=== PATIENT | male | born 1955 | race Caucasian/White ===

== ENCOUNTER 2018-11-30 15:13 | Inpatient (IN) | payer MEDICARE, OTHER, MEDICAID ==
[2018-11-30 15:37] LABS: ADD MAN DIFF? NO
[2018-11-30 15:40] LABS: BASOPHILS % 0.4 % (0.0-2.0); EOSINOPHILS # 0.1 10^3/ul (0.0-0.5); EOSINOPHILS % 0.7 % (0.0-7.0); HEMATOCRIT 38.1 % (42.0-52.0); HEMOGLOBIN 12.1 g/dl (14.0-18.0); LYMPHOCYTES # 1.7 10^3/ul (0.8-2.9); LYMPHOCYTES % 25.7 % (15.0-51.0); MEAN CORPUSCULAR HEMOGLOBIN 25.2 pg (29.0-33.0); MEAN CORPUSCULAR HGB CONC 31.8 g/dl (32.0-37.0); MEAN CORPUSCULAR VOLUME 79.4 fl (82.0-101.0); MONOCYTE # 0.4 10^3/ul (0.3-0.9); MONOCYTES % 5.8 % (0.0-11.0); NEUTROPHIL # 4.5 10^3/ul (1.6-7.5); NEUTROPHILS % 66.5 % (39.0-77.0); PLATELET COUNT 242 10^3/UL (140-415); RED CELL DISTRIBUTION WIDTH 15.8 % (11.5-14.5)
[2018-11-30 15:40] LABS: WHITE BLOOD COUNT 6.7 10^3/ul (4.8-10.8)
[2018-11-30 16:00] LABS: HEMOGLOBIN A1C 9.5 % (0-5.9)
[2018-11-30 16:03] LABS: ANION GAP 12 (5-13); BLOOD UREA NITROGEN 20 mg/dl (7-20); CALCIUM 9.7 mg/dl (8.4-10.2); CARBON DIOXIDE 22 mmol/L (21-31); CHLORIDE 106 mmol/L (97-110); CHOL/HDL RATIO 10.8 RATIO; CHOLESTEROL 294 mg/dl (100-200); CREATINE KINASE 69 IU/L (23-200); CREATININE 1.75 mg/dl (0.61-1.24); Estimated GFR 40 mL/min (>60); GLUCOSE 231 mg/dl (70-220); HDL CHOLESTEROL 27 mg/dl (30-78); POTASSIUM 4.2 mmol/L (3.5-5.1); SODIUM 140 mmol/L (135-144)
[2018-11-30 16:06] LABS: INR 0.97; PARTIAL THROMBOPLASTIN TIME 35.1 Sec (23.0-35.0)
[2018-11-30 16:07] LABS: ETHANOL < 10.0 mg/dl (0-0)
[2018-11-30 16:15] LABS: CK INDEX 2.8; CK-MB 1.93 ng/ml (0.0-2.4); TROPONIN-I < 0.012 ng/ml (0.000-0.120)
[2018-11-30] MEDS: ASPIRIN 325 MG TAB PO (16:18)
[2018-11-30 17:30] LABS: TRIGLYCERIDES > 1575 mg/dl (0-149)
[2018-11-30] MEDS ORDERED: LABETALOL HCL 20MG INJ (17:31)
[2018-11-30] MEDS: LABETALOL HCL 20MG INJ IV ×3 (17:43→21:19)
[2018-11-30] MEDS ORDERED: NACL 0.9% 3 ML SYG IV (19:00)
[2018-11-30] MEDS ORDERED: DOCUSATE SODIUM 100 MG CAP PO (19:00)
[2018-11-30] MEDS ORDERED: ONDANSETRON 4 MG INJ IV (19:00)
[2018-11-30] MEDS ORDERED: NITROGLYCERIN (SL) 0.4 MG TAB SL (19:00)
[2018-11-30] MEDS ORDERED: MAGNESIUM HYDROXIDE 30ML CUP PO (19:00)
[2018-11-30] MEDS ORDERED: DEXTROSE 50% 50 ML SYRINGE IV ×2 (19:30)
[2018-11-30] MEDS ORDERED: GLUCAGON 1 MG INJ IM (19:30)
[2018-11-30] MEDS ORDERED: GLUCOSE GEL 15 GRAM TUBE PO ×2 (19:30)
[2018-11-30] MEDS ORDERED: GLUCOSE GEL 15 GRAM TUBE BUCCAL (19:30)
[2018-11-30] MEDS: INSULIN ASPART [NOVOLOG] 3 ML PEN SC (22:20)
[2018-11-30] MEDS: GEMFIBROZIL 600 MG TAB PO (22:48)
[2018-12-01] MEDS: LABETALOL HCL 20MG INJ IV ×2 (01:39→02:14)
[2018-12-01] MEDS: SOD CHLORIDE 0.9% 1,000 ML IV ×3 (03:25→20:14)
[2018-12-01] MEDS: ATORVASTATIN 40 MG TAB PO (03:26)
[2018-12-01] MEDS: HEPARIN 5,000 UNIT/1 ML VIAL SC ×3 (03:39→21:09)
[2018-12-01] MEDS: INSULIN ASPART [NOVOLOG] 3 ML PEN SC ×5 (04:44→21:09)
[2018-12-01] MEDS: ACCU-CHEK XX (04:44)
[2018-12-01 05:39] LABS: ADD MAN DIFF? NO
[2018-12-01 05:43] LABS: BASOPHILS % 0.2 % (0.0-2.0); EOSINOPHILS # 0.1 10^3/ul (0.0-0.5); EOSINOPHILS % 0.8 % (0.0-7.0); HEMATOCRIT 40.6 % (42.0-52.0); HEMOGLOBIN 12.8 g/dl (14.0-18.0); LYMPHOCYTES # 0.9 10^3/ul (0.8-2.9); LYMPHOCYTES % 14.8 % (15.0-51.0); MEAN CORPUSCULAR HEMOGLOBIN 25.3 pg (29.0-33.0); MEAN CORPUSCULAR HGB CONC 31.5 g/dl (32.0-37.0); MEAN CORPUSCULAR VOLUME 80.2 fl (82.0-101.0); MEAN PLATELET VOLUME 11.9 fl (7.4-10.4); MONOCYTE # 0.3 10^3/ul (0.3-0.9); NEUTROPHILS % 78.4 % (39.0-77.0); PLATELET COUNT 257 10^3/UL (140-415); RED BLOOD COUNT 5.06 10^6/ul (4.70-6.10)
[2018-12-01 05:43] LABS: WHITE BLOOD COUNT 6.4 10^3/ul (4.8-10.8)
[2018-12-01 06:04] LABS: ALANINE AMINOTRANSFERASE 12 IU/L (13-69); ALBUMIN 4.3 g/dl (3.3-4.9); ALKALINE PHOSPHATASE 96 IU/L (42-121); ANION GAP 15 (5-13); ASPARTATE AMINO TRANSFERASE 20 IU/L (15-46); BILIRUBIN,INDIRECT 0.4 mg/dl (0-1.1); BILIRUBIN,TOTAL 0.4 mg/dl (0.2-1.3); BLOOD UREA NITROGEN 22 mg/dl (7-20); CALCIUM 9.7 mg/dl (8.4-10.2); CARBON DIOXIDE 20 mmol/L (21-31); CHLORIDE 104 mmol/L (97-110); CREATININE 1.54 mg/dl (0.61-1.24); Estimated GFR 46 mL/min (>60); GLUCOSE 305 mg/dl (70-220); MAGNESIUM 1.7 mg/dl (1.7-2.5); POTASSIUM 3.8 mmol/L (3.5-5.1); SODIUM 139 mmol/L (135-144); TOTAL PROTEIN 8.2 g/dl (6.1-8.1)
[2018-12-01] MEDS: PANTOPRAZOLE (EC) 40 MG TAB PO (06:38)
[2018-12-01] MEDS ORDERED: ASPIRIN 81 MG TAB (07:51)
[2018-12-01] MEDS: GEMFIBROZIL 600 MG TAB PO ×2 (07:55→20:48)
[2018-12-01] MEDS: ASPIRIN (EC) 81 MG TAB PO (08:04)
[2018-12-01] MEDS: MAGNESIUM SULFATE 2 GM/50 ML 50 ML IVPB (10:55)
[2018-12-01] MEDS: INSULIN GLARGINE [LANTus] (100 UNITS/ML) SYG SC (10:58)
[2018-12-01 16:06] LABS: ERYTHROCYTE SEDIMENTATION RATE 12 mm/Hr (0-20)
[2018-12-01] MEDS: ATORVASTATIN 80 MG TAB PO (20:48)
[2018-12-02] MEDS: LABETALOL HCL 20MG INJ IV (04:34)
[2018-12-02 05:42] LABS: ADD MAN DIFF? NO
[2018-12-02 05:49] LABS: BASOPHILS % 0.4 % (0.0-2.0); EOSINOPHILS # 0.1 10^3/ul (0.0-0.5); EOSINOPHILS % 1.9 % (0.0-7.0); HEMATOCRIT 40.3 % (42.0-52.0); HEMOGLOBIN 12.8 g/dl (14.0-18.0); LYMPHOCYTES # 0.9 10^3/ul (0.8-2.9); LYMPHOCYTES % 19.7 % (15.0-51.0); MEAN CORPUSCULAR HEMOGLOBIN 25.4 pg (29.0-33.0); MEAN CORPUSCULAR HGB CONC 31.8 g/dl (32.0-37.0); MEAN PLATELET VOLUME 11.9 fl (7.4-10.4); MONOCYTE # 0.3 10^3/ul (0.3-0.9); MONOCYTES % 6.9 % (0.0-11.0); NEUTROPHIL # 3.2 10^3/ul (1.6-7.5); NEUTROPHILS % 70.2 % (39.0-77.0); PLATELET COUNT 242 10^3/UL (140-415); RED BLOOD COUNT 5.04 10^6/ul (4.70-6.10); RED CELL DISTRIBUTION WIDTH 16.1 % (11.5-14.5)
[2018-12-02 05:49] LABS: WHITE BLOOD COUNT 4.6 10^3/ul (4.8-10.8)
[2018-12-02 06:15] LABS: ALBUMIN 3.7 g/dl (3.3-4.9); ANION GAP 10 (5-13); BLOOD UREA NITROGEN 18 mg/dl (7-20); CALCIUM 9.5 mg/dl (8.4-10.2); CARBON DIOXIDE 20 mmol/L (21-31); CHLORIDE 109 mmol/L (97-110); CREATININE 1.57 mg/dl (0.61-1.24); GLUCOSE 230 mg/dl (70-220); MAGNESIUM 2.2 mg/dl (1.7-2.5); PHOSPHORUS 4.9 mg/dl (2.5-4.9); POTASSIUM 4.1 mmol/L (3.5-5.1); SODIUM 139 mmol/L (135-144)
[2018-12-02] MEDS: PANTOPRAZOLE (EC) 40 MG TAB PO (06:59)
[2018-12-02] MEDS: INSULIN ASPART [NOVOLOG] 3 ML PEN SC ×4 (07:40→21:32)
[2018-12-02] MEDS: INSULIN GLARGINE [LANTus] (100 UNITS/ML) SYG SC ×2 (07:40→12:06)
[2018-12-02] MEDS: GEMFIBROZIL 600 MG TAB PO ×2 (08:06→21:14)
[2018-12-02] MEDS: ASPIRIN (EC) 81 MG TAB PO (08:06)
[2018-12-02] MEDS: HEPARIN 5,000 UNIT/1 ML VIAL SC ×2 (08:12→21:33)
[2018-12-02] MEDS: SOD CHLORIDE 0.9% 1,000 ML IV (10:26)
[2018-12-02] MEDS: LINAGLIPTIN 5 MG TABLET PO (11:52)
[2018-12-02 14:56] LABS: RAPID PLASMA REAGIN NONREACTIVE (NR)
[2018-12-02] MEDS: ATORVASTATIN 80 MG TAB PO (21:14)
[2018-12-03] MEDS: SOD CHLORIDE 0.9% 1,000 ML IV (00:32)
[2018-12-03 05:41] LABS: ADD MAN DIFF? NO
[2018-12-03 05:43] LABS: ADD UMIC YES; UR ASCORBIC ACID NEGATIVE (NEGATIVE); UR BILIRUBIN (Dip) NEGATIVE (NEGATIVE); UR BLOOD (Dip) 1+ mg/dL (NEGATIVE); UR CLARITY CLEAR (CLEAR); UR COLOR YELLOW (YELLOW); UR GLUCOSE (Dip) 2+ mg/dL (NEGATIVE); UR KETONES (Dip) NEGATIVE (NEGATIVE); UR LEUKOCYTE ESTERASE (Dip) NEGATIVE Leu/ul (NEGATIVE); UR NITRITE (Dip) NEGATIVE (NEGATIVE); UR RBC 0 /HPF (0-5); UR SPECIFIC GRAVITY (Dip) 1.011 (1.003-1.030); UR TOTAL PROTEIN (Dip) 2+ mg/dl (NEGATIVE); UR UROBILINOGEN (Dip) NEGATIVE (NEGATIVE); UR WBC 0 /HPF (0-5)
[2018-12-03 05:46] LABS: WHITE BLOOD COUNT 5.1 10^3/ul (4.8-10.8)
[2018-12-03 05:46] LABS: BASOPHILS % 0.2 % (0.0-2.0); EOSINOPHILS # 0.1 10^3/ul (0.0-0.5); EOSINOPHILS % 2.4 % (0.0-7.0); HEMATOCRIT 37.6 % (42.0-52.0); HEMOGLOBIN 11.9 g/dl (14.0-18.0); LYMPHOCYTES # 1.2 10^3/ul (0.8-2.9); LYMPHOCYTES % 23.3 % (15.0-51.0); MEAN CORPUSCULAR HEMOGLOBIN 25.7 pg (29.0-33.0); MEAN CORPUSCULAR HGB CONC 31.6 g/dl (32.0-37.0); MEAN CORPUSCULAR VOLUME 81.2 fl (82.0-101.0); MEAN PLATELET VOLUME 11.7 fl (7.4-10.4); MONOCYTE # 0.4 10^3/ul (0.3-0.9); MONOCYTES % 7.3 % (0.0-11.0); NEUTROPHIL # 3.4 10^3/ul (1.6-7.5); NEUTROPHILS % 66.4 % (39.0-77.0); PLATELET COUNT 237 10^3/UL (140-415); RED BLOOD COUNT 4.63 10^6/ul (4.70-6.10); RED CELL DISTRIBUTION WIDTH 16.4 % (11.5-14.5)
[2018-12-03 05:48] LABS: CREATININE,URINE RANDOM 72.34 mg/dl (20-370)
[2018-12-03 05:57] LABS: AMPHETAMINE/METHAMPHETAMINE Negative (NEGATIVE); BARBITURATES Negative (NEGATIVE); BENZODIAZEPINES Negative (NEGATIVE); CANNABINOIDS Negative (NEGATIVE); COCAINE Negative (NEGATIVE); OPIATES Negative (NEGATIVE)
[2018-12-03 06:04] LABS: PROTEIN/CREAT RATIO 3.91 RATIO
[2018-12-03 06:11] LABS: ALBUMIN 3.5 g/dl (3.3-4.9); ANION GAP 8 (5-13); BLOOD UREA NITROGEN 19 mg/dl (7-20); CALCIUM 8.9 mg/dl (8.4-10.2); CARBON DIOXIDE 21 mmol/L (21-31); CHLORIDE 111 mmol/L (97-110); CREATININE 1.53 mg/dl (0.61-1.24); GLUCOSE 138 mg/dl (70-220); PHOSPHORUS 4.6 mg/dl (2.5-4.9); POTASSIUM 3.9 mmol/L (3.5-5.1); SODIUM 140 mmol/L (135-144)
[2018-12-03] MEDS: PANTOPRAZOLE (EC) 40 MG TAB PO (06:20)
[2018-12-03] MEDS: INSULIN ASPART [NOVOLOG] 3 ML PEN SC ×4 (08:00→20:49)
[2018-12-03] MEDS: INSULIN GLARGINE [LANTus] (100 UNITS/ML) SYG SC (08:18)
[2018-12-03] MEDS: GEMFIBROZIL 600 MG TAB PO ×2 (08:43→21:10)
[2018-12-03] MEDS: ASPIRIN (EC) 81 MG TAB PO (08:43)
[2018-12-03] MEDS: LINAGLIPTIN 5 MG TABLET PO (08:43)
[2018-12-03] MEDS: HEPARIN 5,000 UNIT/1 ML VIAL SC ×2 (08:46→21:29)
[2018-12-03] MEDS: AMLODIPINE 5 MG TAB PO ×2 (13:31→21:10)
[2018-12-03] MEDS: hydrALAzine 20 MG INJ IV (16:00)
[2018-12-03] MEDS: ATORVASTATIN 80 MG TAB PO (21:10)
[2018-12-04 05:44] LABS: WHITE BLOOD COUNT 4.7 10^3/ul (4.8-10.8)
[2018-12-04 05:44] LABS: ADD MAN DIFF? NO; BASOPHILS % 0.4 % (0.0-2.0); EOSINOPHILS # 0.1 10^3/ul (0.0-0.5); HEMATOCRIT 39.5 % (42.0-52.0); HEMOGLOBIN 12.2 g/dl (14.0-18.0); LYMPHOCYTES # 1.3 10^3/ul (0.8-2.9); LYMPHOCYTES % 27.2 % (15.0-51.0); MEAN CORPUSCULAR HGB CONC 30.9 g/dl (32.0-37.0); MEAN CORPUSCULAR VOLUME 80.9 fl (82.0-101.0); MEAN PLATELET VOLUME 11.4 fl (7.4-10.4); MONOCYTE # 0.4 10^3/ul (0.3-0.9); MONOCYTES % 8.6 % (0.0-11.0); NEUTROPHIL # 2.8 10^3/ul (1.6-7.5); PLATELET COUNT 215 10^3/UL (140-415); RED BLOOD COUNT 4.88 10^6/ul (4.70-6.10); RED CELL DISTRIBUTION WIDTH 15.9 % (11.5-14.5)
[2018-12-04] MEDS: PANTOPRAZOLE (EC) 40 MG TAB PO (05:53)
[2018-12-04 06:10] LABS: ALBUMIN 3.7 g/dl (3.3-4.9); ANION GAP 8 (5-13); BLOOD UREA NITROGEN 18 mg/dl (7-20); CALCIUM 9.2 mg/dl (8.4-10.2); CARBON DIOXIDE 21 mmol/L (21-31); CHLORIDE 111 mmol/L (97-110); CREATININE 1.47 mg/dl (0.61-1.24); GLUCOSE 138 mg/dl (70-220); MAGNESIUM 1.9 mg/dl (1.7-2.5); PHOSPHORUS 4.7 mg/dl (2.5-4.9); POTASSIUM 3.9 mmol/L (3.5-5.1); SODIUM 140 mmol/L (135-144)
[2018-12-04] MEDS: INSULIN ASPART [NOVOLOG] 3 ML PEN SC ×4 (07:53→20:43)
[2018-12-04] MEDS: ACETAMINOPHEN 325 MG TAB PO (09:13)
[2018-12-04] MEDS: GEMFIBROZIL 600 MG TAB PO ×2 (09:13→20:37)
[2018-12-04] MEDS: ASPIRIN (EC) 81 MG TAB PO (09:14)
[2018-12-04] MEDS: AMLODIPINE 5 MG TAB PO (09:14)
[2018-12-04] MEDS: LINAGLIPTIN 5 MG TABLET PO (09:14)
[2018-12-04] MEDS: METOPROLOL (XL) 100 MG TAB PO ×2 (09:15→20:38)
[2018-12-04] MEDS: HEPARIN 5,000 UNIT/1 ML VIAL SC (10:28)
[2018-12-04] MEDS: INSULIN GLARGINE [LANTus] (100 UNITS/ML) SYG SC (10:28)
[2018-12-04] MEDS: SALINE 0.65% 45 ML NAS SPRAY NASAL (11:45)
[2018-12-04] MEDS: NIFEdipine (XL) 30 MG TAB PO (14:47)
[2018-12-04] MEDS: ATORVASTATIN 80 MG TAB PO (20:37)
[2018-12-05] MEDS: SALINE 0.65% 45 ML NAS SPRAY NASAL (00:50)
[2018-12-05] MEDS: PANTOPRAZOLE (EC) 40 MG TAB PO (06:39)
[2018-12-05 06:47] LABS: IRON 56 ug/dl (35-150)
[2018-12-05 06:57] LABS: % IRON SATURATION 22 % SAT (22-52); TOTAL IRON BINDING CAPACITY 254 ug/dl (241-421)
[2018-12-05 09:34] LABS: ALBUMIN 3.6 g/dl (3.3-4.9); ANION GAP 8 (5-13); BLOOD UREA NITROGEN 25 mg/dl (7-20); CALCIUM 9.3 mg/dl (8.4-10.2); CARBON DIOXIDE 20 mmol/L (21-31); CHLORIDE 108 mmol/L (97-110); CREATININE 1.53 mg/dl (0.61-1.24); GLUCOSE 162 mg/dl (70-220); MAGNESIUM 1.8 mg/dl (1.7-2.5); PHOSPHORUS 4.7 mg/dl (2.5-4.9); POTASSIUM 4.4 mmol/L (3.5-5.1); SODIUM 136 mmol/L (135-144)
[2018-12-05] MEDS: NIFEdipine (XL) 30 MG TAB PO ×2 (09:43→20:15)
[2018-12-05] MEDS: GEMFIBROZIL 600 MG TAB PO ×2 (09:44→20:14)
[2018-12-05] MEDS: LINAGLIPTIN 5 MG TABLET PO (09:44)
[2018-12-05] MEDS: METOPROLOL (XL) 100 MG TAB PO ×2 (09:44→20:15)
[2018-12-05] MEDS: INSULIN ASPART [NOVOLOG] 3 ML PEN SC ×5 (09:52→20:25)
[2018-12-05] MEDS: INSULIN GLARGINE [LANTus] (100 UNITS/ML) SYG SC (09:58)
[2018-12-05] MEDS: FISH OIL 1,000 MG CAP PO ×2 (11:56→20:15)
[2018-12-05] MEDS: ATORVASTATIN 80 MG TAB PO (20:15)
[2018-12-05] MEDS: ACETAMINOPHEN 325 MG TAB PO (20:28)
[2018-12-06] MEDS: PANTOPRAZOLE (EC) 40 MG TAB PO (05:27)
[2018-12-06 05:48] LABS: ADD MAN DIFF? NO
[2018-12-06 05:52] LABS: WHITE BLOOD COUNT 4.8 10^3/ul (4.8-10.8)
[2018-12-06 05:52] LABS: BASOPHILS % 0.6 % (0.0-2.0); EOSINOPHILS # 0.1 10^3/ul (0.0-0.5); EOSINOPHILS % 2.1 % (0.0-7.0); HEMATOCRIT 37.7 % (42.0-52.0); HEMOGLOBIN 11.6 g/dl (14.0-18.0); LYMPHOCYTES # 1.8 10^3/ul (0.8-2.9); LYMPHOCYTES % 36.6 % (15.0-51.0); MEAN CORPUSCULAR HEMOGLOBIN 25.3 pg (29.0-33.0); MEAN CORPUSCULAR HGB CONC 30.8 g/dl (32.0-37.0); MEAN CORPUSCULAR VOLUME 82.1 fl (82.0-101.0); MEAN PLATELET VOLUME 11.8 fl (7.4-10.4); MONOCYTE # 0.5 10^3/ul (0.3-0.9); MONOCYTES % 10.7 % (0.0-11.0); NEUTROPHIL # 2.4 10^3/ul (1.6-7.5); NEUTROPHILS % 49.2 % (39.0-77.0); PLATELET COUNT 211 10^3/UL (140-415); RED BLOOD COUNT 4.59 10^6/ul (4.70-6.10)
[2018-12-06 06:18] LABS: ALBUMIN 3.8 g/dl (3.3-4.9); ANION GAP 8 (5-13); BLOOD UREA NITROGEN 34 mg/dl (7-20); CALCIUM 9.3 mg/dl (8.4-10.2); CARBON DIOXIDE 23 mmol/L (21-31); CHLORIDE 108 mmol/L (97-110); CREATININE 1.83 mg/dl (0.61-1.24); GLUCOSE 183 mg/dl (70-220); POTASSIUM 4.5 mmol/L (3.5-5.1); SODIUM 139 mmol/L (135-144)
[2018-12-06 06:20] LABS: CHOL/HDL RATIO 11.8 RATIO; HDL CHOLESTEROL 25 mg/dl (30-78)
[2018-12-06 06:20] LABS: CHOLESTEROL 297 mg/dl (100-200)
[2018-12-06 06:30] LABS: LDL CHOLESTEROL,CALCULATED 87 mg/dl; TRIGLYCERIDES 926 mg/dl (0-149)
[2018-12-06] MEDS: LINAGLIPTIN 5 MG TABLET PO (08:34)
[2018-12-06] MEDS: NIFEdipine (XL) 30 MG TAB PO ×2 (08:34→21:01)
[2018-12-06] MEDS: GEMFIBROZIL 600 MG TAB PO ×2 (08:34→21:01)
[2018-12-06] MEDS: FISH OIL 1,000 MG CAP PO ×2 (08:35→21:01)
[2018-12-06] MEDS: METOPROLOL (XL) 100 MG TAB PO ×2 (08:35→21:02)
[2018-12-06] MEDS: INSULIN ASPART [NOVOLOG] 3 ML PEN SC ×4 (08:45→21:00)
[2018-12-06] MEDS: SALINE 0.65% 45 ML NAS SPRAY NASAL (09:40)
[2018-12-06] MEDS: SOD CHLORIDE 0.9% 1,000 ML IV (10:36)
[2018-12-06] MEDS: ASPIRIN (EC) 81 MG TAB PO (10:36)
[2018-12-06] MEDS: INSULIN GLARGINE [LANTus] (100 UNITS/ML) SYG SC (10:45)
[2018-12-06] MEDS ORDERED: MINERAL OIL 133 ML ENEMA PR (19:00)
[2018-12-06] MEDS ORDERED: BISACODYL 10 MG SUPP PR (19:00)
[2018-12-06] MEDS: ATORVASTATIN 80 MG TAB PO (21:00)
[2018-12-07] MEDS: SOD CHLORIDE 0.9% 1,000 ML IV (05:32)
[2018-12-07] MEDS: PANTOPRAZOLE (EC) 40 MG TAB PO (05:32)
[2018-12-07 05:40] LABS: ADD MAN DIFF? NO
[2018-12-07 05:46] LABS: BASOPHILS % 0.2 % (0.0-2.0); EOSINOPHILS # 0.1 10^3/ul (0.0-0.5); EOSINOPHILS % 1.9 % (0.0-7.0); HEMATOCRIT 40.7 % (42.0-52.0); HEMOGLOBIN 12.2 g/dl (14.0-18.0); LYMPHOCYTES # 1.3 10^3/ul (0.8-2.9); LYMPHOCYTES % 27.4 % (15.0-51.0); MEAN CORPUSCULAR HEMOGLOBIN 24.7 pg (29.0-33.0); MEAN CORPUSCULAR VOLUME 82.6 fl (82.0-101.0); MEAN PLATELET VOLUME 11.7 fl (7.4-10.4); MONOCYTE # 0.4 10^3/ul (0.3-0.9); MONOCYTES % 9.1 % (0.0-11.0); NEUTROPHIL # 2.9 10^3/ul (1.6-7.5); NEUTROPHILS % 60.2 % (39.0-77.0); PLATELET COUNT 214 10^3/UL (140-415); RED BLOOD COUNT 4.93 10^6/ul (4.70-6.10); RED CELL DISTRIBUTION WIDTH 15.8 % (11.5-14.5)
[2018-12-07 05:46] LABS: WHITE BLOOD COUNT 4.8 10^3/ul (4.8-10.8)
[2018-12-07 06:18] LABS: ALBUMIN 3.8 g/dl (3.3-4.9); ANION GAP 8 (5-13); BLOOD UREA NITROGEN 34 mg/dl (7-20); CALCIUM 9.3 mg/dl (8.4-10.2); CARBON DIOXIDE 22 mmol/L (21-31); CHLORIDE 109 mmol/L (97-110); CREATININE 1.64 mg/dl (0.61-1.24); GLUCOSE 213 mg/dl (70-220); PHOSPHORUS 4.5 mg/dl (2.5-4.9); POTASSIUM 4.4 mmol/L (3.5-5.1); SODIUM 139 mmol/L (135-144)
[2018-12-07] MEDS: INSULIN ASPART [NOVOLOG] 3 ML PEN SC ×2 (08:01→12:09)
[2018-12-07] MEDS: INSULIN GLARGINE [LANTus] (100 UNITS/ML) SYG SC (08:01)
[2018-12-07] MEDS: GEMFIBROZIL 600 MG TAB PO (10:57)
[2018-12-07] MEDS: FISH OIL 1,000 MG CAP PO (10:57)
[2018-12-07] MEDS: ASPIRIN (EC) 81 MG TAB PO (10:57)
[2018-12-07] MEDS: LINAGLIPTIN 5 MG TABLET PO (10:58)
[2018-12-07] MEDS: METOPROLOL (XL) 100 MG TAB PO (10:58)
[2018-12-07] MEDS: NIFEdipine (XL) 30 MG TAB PO (10:58)
== END 2018-12-07 12:45 | DRG 65 ==
LOC: TEL 17:46 → 6WM 12-01 02:17 → E/R 15:13
DX: I63.9 Cerebral infarction, unspecified (principal); G81.91 Hemiplegia, unspecified affecting right dominant side; N17.9 Acute kidney failure, unspecified; I12.9 Hypertensive chronic kidney disease with stage 1 through stage 4 chronic kidney disease, or unspecified chronic kidney disease; E11.22 Type 2 diabetes mellitus with diabetic chronic kidney disease; N18.9 Chronic kidney disease, unspecified; E78.1 Pure hyperglyceridemia; N32.9 Bladder disorder, unspecified; E11.65 Type 2 diabetes mellitus with hyperglycemia; I65.23 Occlusion and stenosis of bilateral carotid arteries; E66.3 Overweight; D50.9 Iron deficiency anemia, unspecified; Z87.891 Personal history of nicotine dependence; Z68.27 Body mass index [BMI] 27.0-27.9, adult; Z91.19 Patient's noncompliance with other medical treatment and regimen
CPT/HCPCS: 70450; 70496; 70498; 70551; 71045; 76775; 80048; 80053; 80061; 80069; 80307; 81001; 81003; 82550; 82553; 82570; 82962; 83036; 83540; 83735; 84443; 84484; 85025; 85610; 85651; 85730; 86592; 92523; 92610; 93005; 93306; 93880; 96374; 97110; 97116; 97163; 97165; 97530; 97535; 99285-25

== ENCOUNTER 2018-12-07 13:00 | Inpatient (IN) | payer MEDICARE, MEDICAID ==
[2018-12-07] MEDS ORDERED: MAGNESIUM HYDROXIDE 30ML CUP PO (13:30)
[2018-12-07] MEDS ORDERED: BISACODYL 10 MG SUPP PR (13:30)
[2018-12-07] MEDS ORDERED: PENDING SANTYL ORDER FOR WOUND CARE XX (13:30)
[2018-12-07] MEDS ORDERED: GLUCOSE GEL 15 GRAM TUBE BUCCAL ×2 (14:00→15:00)
[2018-12-07] MEDS ORDERED: GLUCAGON 1 MG INJ IM ×2 (14:00→15:00)
[2018-12-07] MEDS ORDERED: GLUCOSE GEL 15 GRAM TUBE PO ×4 (14:00→15:00)
[2018-12-07] MEDS ORDERED: DEXTROSE 50% 50 ML SYRINGE IV ×4 (14:00→15:00)
[2018-12-07] MEDS ORDERED: hydrALAzine 20 MG INJ IV (14:30)
[2018-12-07] MEDS ORDERED: SALINE 0.65% 45 ML NAS SPRAY NASAL (14:30)
[2018-12-07] MEDS ORDERED: ONDANSETRON (ODT) 4 MG TAB ODT (14:30)
[2018-12-07] MEDS: ACCU-CHEK XX ×2 (17:28→21:26)
[2018-12-07] MEDS: INSULIN ASPART [NOVOLOG] 3 ML PEN SC ×2 (17:28→21:26)
[2018-12-07 17:55] LABS: ADD UMIC YES; UR ASCORBIC ACID NEGATIVE (NEGATIVE); UR BILIRUBIN (Dip) NEGATIVE (NEGATIVE); UR BLOOD (Dip) 1+ mg/dL (NEGATIVE); UR CLARITY CLEAR (CLEAR); UR COLOR STRAW (YELLOW); UR GLUCOSE (Dip) NEGATIVE (NEGATIVE); UR KETONES (Dip) NEGATIVE (NEGATIVE); UR LEUKOCYTE ESTERASE (Dip) NEGATIVE Leu/ul (NEGATIVE); UR NITRITE (Dip) NEGATIVE (NEGATIVE); UR RBC 0 /HPF (0-5); UR SPECIFIC GRAVITY (Dip) 1.008 (1.003-1.030); UR TOTAL PROTEIN (Dip) 2+ mg/dl (NEGATIVE); UR UROBILINOGEN (Dip) NEGATIVE (NEGATIVE); UR WBC 0 /HPF (0-5)
[2018-12-07] MEDS: SENNA TAB PO (21:23)
[2018-12-07] MEDS: ATORVASTATIN 80 MG TAB PO (21:23)
[2018-12-07] MEDS: FISH OIL 1,000 MG CAP PO (21:23)
[2018-12-07] MEDS: DOCUSATE SODIUM 100 MG CAP PO (21:23)
[2018-12-07] MEDS: GEMFIBROZIL 600 MG TAB PO (21:23)
[2018-12-07] MEDS: METOPROLOL 50 MG PO (21:24)
[2018-12-07] MEDS: NIFEdipine (XL) 30 MG TAB PO (21:24)
[2018-12-08] MEDS: ACCU-CHEK XX ×5 (02:20→21:06)
[2018-12-08] MEDS: PANTOPRAZOLE (EC) 40 MG TAB PO (06:28)
[2018-12-08 07:10] LABS: ADD MAN DIFF? NO
[2018-12-08 07:16] LABS: BASOPHILS % 0.3 % (0.0-2.0); EOSINOPHILS # 0.1 10^3/ul (0.0-0.5); EOSINOPHILS % 1.9 % (0.0-7.0); HEMATOCRIT 37.7 % (42.0-52.0); HEMOGLOBIN 11.5 g/dl (14.0-18.0); LYMPHOCYTES # 1.6 10^3/ul (0.8-2.9); LYMPHOCYTES % 27.2 % (15.0-51.0); MEAN CORPUSCULAR HEMOGLOBIN 24.7 pg (29.0-33.0); MEAN CORPUSCULAR HGB CONC 30.5 g/dl (32.0-37.0); MEAN CORPUSCULAR VOLUME 80.9 fl (82.0-101.0); MEAN PLATELET VOLUME 12.2 fl (7.4-10.4); MONOCYTE # 0.6 10^3/ul (0.3-0.9); MONOCYTES % 9.3 % (0.0-11.0); NEUTROPHIL # 3.6 10^3/ul (1.6-7.5); NEUTROPHILS % 60.5 % (39.0-77.0); PLATELET COUNT 228 10^3/UL (140-415); RED BLOOD COUNT 4.66 10^6/ul (4.70-6.10); RED CELL DISTRIBUTION WIDTH 15.7 % (11.5-14.5)
[2018-12-08 07:16] LABS: WHITE BLOOD COUNT 5.9 10^3/ul (4.8-10.8)
[2018-12-08 07:42] LABS: ALANINE AMINOTRANSFERASE 70 IU/L (13-69); ALBUMIN 3.9 g/dl (3.3-4.9); ALBUMIN/GLOBULIN RATIO 1.11; ALKALINE PHOSPHATASE 81 IU/L (42-121); ANION GAP 8 (5-13); ASPARTATE AMINO TRANSFERASE 59 IU/L (15-46); BILIRUBIN,INDIRECT 0.4 mg/dl (0-1.1); BILIRUBIN,TOTAL 0.4 mg/dl (0.2-1.3); BLOOD UREA NITROGEN 30 mg/dl (7-20); CARBON DIOXIDE 20 mmol/L (21-31); CHLORIDE 109 mmol/L (97-110); CREATININE 1.53 mg/dl (0.61-1.24); Estimated GFR 46 mL/min (>60); GLUCOSE 173 mg/dl (70-220); POTASSIUM 4.3 mmol/L (3.5-5.1); SODIUM 137 mmol/L (135-144); TOTAL PROTEIN 7.4 g/dl (6.1-8.1)
[2018-12-08] MEDS: INSULIN GLARGINE [LANTus] (100 UNITS/ML) SYG SC (07:59)
[2018-12-08] MEDS: INSULIN ASPART [NOVOLOG] 3 ML PEN SC ×4 (07:59→21:06)
[2018-12-08] MEDS: LINAGLIPTIN 5 MG TABLET PO (08:40)
[2018-12-08] MEDS: FISH OIL 1,000 MG CAP PO ×2 (08:40→20:55)
[2018-12-08] MEDS: DOCUSATE SODIUM 100 MG CAP PO ×2 (08:41→20:55)
[2018-12-08] MEDS: NIFEdipine (XL) 30 MG TAB PO ×2 (08:41→20:56)
[2018-12-08] MEDS: GEMFIBROZIL 600 MG TAB PO ×2 (08:41→20:55)
[2018-12-08] MEDS: ASPIRIN (EC) 81 MG TAB PO (08:41)
[2018-12-08] MEDS: METOPROLOL 50 MG PO ×2 (08:41→20:56)
[2018-12-08 15:31] LABS: IRON 50 ug/dl (35-150)
[2018-12-08 15:40] LABS: % IRON SATURATION 16 % SAT (22-52); TOTAL IRON BINDING CAPACITY 304 ug/dl (241-421)
[2018-12-08] MEDS: ATORVASTATIN 80 MG TAB PO (20:56)
[2018-12-08] MEDS: SENNA TAB PO (20:56)
[2018-12-08] MEDS: ACETAMINOPHEN 325 MG TAB PO (23:51)
[2018-12-09] MEDS: ACCU-CHEK XX ×5 (02:00→20:57)
[2018-12-09] MEDS: PANTOPRAZOLE (EC) 40 MG TAB PO (06:00)
[2018-12-09] MEDS: INSULIN GLARGINE [LANTus] (100 UNITS/ML) SYG SC (07:57)
[2018-12-09] MEDS: INSULIN ASPART [NOVOLOG] 3 ML PEN SC ×4 (07:57→20:56)
[2018-12-09] MEDS: LINAGLIPTIN 5 MG TABLET PO (07:58)
[2018-12-09] MEDS: ASPIRIN (EC) 81 MG TAB PO (09:13)
[2018-12-09] MEDS: METOPROLOL 50 MG PO ×2 (09:14→20:51)
[2018-12-09] MEDS: NIFEdipine (XL) 30 MG TAB PO ×2 (09:14→20:52)
[2018-12-09] MEDS: GEMFIBROZIL 600 MG TAB PO ×2 (09:14→20:50)
[2018-12-09] MEDS: FISH OIL 1,000 MG CAP PO ×2 (09:14→20:52)
[2018-12-09] MEDS: DOCUSATE SODIUM 100 MG CAP PO ×2 (09:14→20:52)
[2018-12-09] MEDS: FERROUS SULFATE (EC) 325 MG TAB PO (13:15)
[2018-12-09] MEDS: SENNA TAB PO (20:50)
[2018-12-09] MEDS: ATORVASTATIN 80 MG TAB PO (20:50)
[2018-12-09] MEDS: MUPIROCIN 2% 22 GM OINT TOP (20:57)
[2018-12-10] MEDS: ACCU-CHEK XX ×5 (01:35→21:00)
[2018-12-10] MEDS: PANTOPRAZOLE (EC) 40 MG TAB PO (05:42)
[2018-12-10] MEDS: INSULIN ASPART [NOVOLOG] 3 ML PEN SC ×4 (07:51→21:38)
[2018-12-10] MEDS: INSULIN GLARGINE [LANTus] (100 UNITS/ML) SYG SC (07:52)
[2018-12-10] MEDS: FISH OIL 1,000 MG CAP PO ×2 (08:53→21:27)
[2018-12-10] MEDS: FERROUS SULFATE (EC) 325 MG TAB PO (08:53)
[2018-12-10] MEDS: METOPROLOL 50 MG PO ×2 (08:54→21:29)
[2018-12-10] MEDS: MUPIROCIN 2% 22 GM OINT TOP ×2 (08:54→21:32)
[2018-12-10] MEDS: NIFEdipine (XL) 30 MG TAB PO ×2 (08:54→21:29)
[2018-12-10] MEDS: ASPIRIN (EC) 81 MG TAB PO (08:54)
[2018-12-10] MEDS: LINAGLIPTIN 5 MG TABLET PO (08:54)
[2018-12-10] MEDS: DOCUSATE SODIUM 100 MG CAP PO ×2 (08:54→21:27)
[2018-12-10] MEDS: GEMFIBROZIL 600 MG TAB PO ×2 (08:54→21:27)
[2018-12-10] MEDS: SENNA TAB PO (21:27)
[2018-12-10] MEDS: ACETAMINOPHEN 325 MG TAB PO (21:28)
[2018-12-10] MEDS: ATORVASTATIN 80 MG TAB PO (21:29)
[2018-12-11] MEDS: ACCU-CHEK XX ×5 (02:00→20:49)
[2018-12-11] MEDS: PANTOPRAZOLE (EC) 40 MG TAB PO (06:55)
[2018-12-11] MEDS: INSULIN ASPART [NOVOLOG] 3 ML PEN SC ×4 (08:03→20:48)
[2018-12-11] MEDS: LINAGLIPTIN 5 MG TABLET PO (08:04)
[2018-12-11] MEDS: INSULIN GLARGINE [LANTus] (100 UNITS/ML) SYG SC (08:04)
[2018-12-11] MEDS: ASPIRIN (EC) 81 MG TAB PO (08:07)
[2018-12-11] MEDS: FISH OIL 1,000 MG CAP PO ×2 (08:07→20:48)
[2018-12-11] MEDS: FERROUS SULFATE (EC) 325 MG TAB PO (08:07)
[2018-12-11] MEDS: DOCUSATE SODIUM 100 MG CAP PO ×2 (08:07→20:48)
[2018-12-11] MEDS: GEMFIBROZIL 600 MG TAB PO ×2 (08:07→20:48)
[2018-12-11] MEDS: NIFEdipine (XL) 30 MG TAB PO ×2 (08:09→20:48)
[2018-12-11] MEDS: METOPROLOL 50 MG PO ×2 (08:10→20:48)
[2018-12-11] MEDS: MUPIROCIN 2% 22 GM OINT TOP ×2 (08:10→20:49)
[2018-12-11] MEDS: ATORVASTATIN 80 MG TAB PO (20:48)
[2018-12-11] MEDS: SENNA TAB PO (20:48)
[2018-12-12] MEDS: ACCU-CHEK XX ×5 (02:00→21:29)
[2018-12-12] MEDS: PANTOPRAZOLE (EC) 40 MG TAB PO (06:40)
[2018-12-12] MEDS: INSULIN ASPART [NOVOLOG] 3 ML PEN SC ×4 (07:35→21:18)
[2018-12-12] MEDS: LINAGLIPTIN 5 MG TABLET PO (08:00)
[2018-12-12] MEDS: INSULIN GLARGINE [LANTus] (100 UNITS/ML) SYG SC (08:00)
[2018-12-12] MEDS: MUPIROCIN 2% 22 GM OINT TOP ×2 (08:01→21:28)
[2018-12-12] MEDS: DOCUSATE SODIUM 100 MG CAP PO ×2 (09:28→21:17)
[2018-12-12] MEDS: NIFEdipine (XL) 30 MG TAB PO ×2 (09:29→21:17)
[2018-12-12] MEDS: FERROUS SULFATE (EC) 325 MG TAB PO (09:29)
[2018-12-12] MEDS: GEMFIBROZIL 600 MG TAB PO ×2 (09:29→21:16)
[2018-12-12] MEDS: ASPIRIN (EC) 81 MG TAB PO ×2 (09:29→21:16)
[2018-12-12] MEDS: FISH OIL 1,000 MG CAP PO ×2 (09:29→21:16)
[2018-12-12] MEDS: METOPROLOL 50 MG PO ×2 (09:29→21:16)
[2018-12-12] MEDS: THIAMINE 100 MG TAB PO (12:40)
[2018-12-12] MEDS ORDERED: NIACIN (ER) 500 MG TAB PO (21:00)
[2018-12-12] MEDS: PSYLLIUM (SUGAR FREE) PACKET PO (21:17)
[2018-12-12] MEDS: ATORVASTATIN 80 MG TAB PO (21:17)
[2018-12-12] MEDS: SENNA TAB PO (21:17)
[2018-12-12] MEDS: NIACIN (SR) 250 MG CAP PO (23:11)
[2018-12-13] MEDS: ACCU-CHEK XX ×5 (02:50→21:23)
[2018-12-13] MEDS: PANTOPRAZOLE (EC) 40 MG TAB PO (06:09)
[2018-12-13] MEDS: INSULIN GLARGINE [LANTus] (100 UNITS/ML) SYG SC (09:00)
[2018-12-13] MEDS: INSULIN ASPART [NOVOLOG] 3 ML PEN SC ×4 (09:00→20:29)
[2018-12-13] MEDS: THIAMINE 100 MG TAB PO (09:02)
[2018-12-13] MEDS: FISH OIL 1,000 MG CAP PO ×2 (09:02→20:24)
[2018-12-13] MEDS: DOCUSATE SODIUM 100 MG CAP PO ×2 (09:03→20:24)
[2018-12-13] MEDS: NIFEdipine (XL) 30 MG TAB PO (09:03)
[2018-12-13] MEDS: METOPROLOL 50 MG PO ×2 (09:03→20:27)
[2018-12-13] MEDS: LINAGLIPTIN 5 MG TABLET PO (09:03)
[2018-12-13] MEDS: GEMFIBROZIL 600 MG TAB PO ×2 (09:03→20:24)
[2018-12-13] MEDS: FERROUS SULFATE (EC) 325 MG TAB PO (09:03)
[2018-12-13] MEDS: MUPIROCIN 2% 22 GM OINT TOP ×2 (09:05→21:10)
[2018-12-13 09:39] LABS: HEPATITIS B SURFACE ANTIGEN NEGATIVE (NEGATIVE)
[2018-12-13 09:56] LABS: HEPATITIS C VIRAL ANTIBODY NEGATIVE (NEGATIVE)
[2018-12-13] MEDS: metFORMIN 500 MG TAB PO (17:40)
[2018-12-13] MEDS: ALFUZOSIN (SR) 10 MG TAB PO (20:23)
[2018-12-13] MEDS: ASPIRIN (EC) 81 MG TAB PO (20:23)
[2018-12-13] MEDS: ATORVASTATIN 80 MG TAB PO (20:24)
[2018-12-13] MEDS: LOSARTAN 50 MG TAB PO (20:26)
[2018-12-13] MEDS: SENNA TAB PO (20:27)
[2018-12-13] MEDS: PSYLLIUM (SUGAR FREE) PACKET PO (20:38)
[2018-12-13] MEDS: NIACIN (SR) 250 MG CAP PO (21:08)
[2018-12-14] MEDS: ACCU-CHEK XX ×5 (02:00→21:19)
[2018-12-14] MEDS: PANTOPRAZOLE (EC) 40 MG TAB PO (06:41)
[2018-12-14] MEDS: LINAGLIPTIN 5 MG TABLET PO (07:52)
[2018-12-14] MEDS: INSULIN ASPART [NOVOLOG] 3 ML PEN SC ×4 (07:54→21:00)
[2018-12-14] MEDS: INSULIN GLARGINE [LANTus] (100 UNITS/ML) SYG SC (08:01)
[2018-12-14 09:08] LABS: ANION GAP 10 (5-13); BLOOD UREA NITROGEN 25 mg/dl (7-20); CALCIUM 9.5 mg/dl (8.4-10.2); CARBON DIOXIDE 20 mmol/L (21-31); CHLORIDE 112 mmol/L (97-110); CREATININE 1.49 mg/dl (0.61-1.24); Estimated GFR 48 mL/min (>60); GLUCOSE 149 mg/dl (70-220); POTASSIUM 3.8 mmol/L (3.5-5.1); SODIUM 142 mmol/L (135-144)
[2018-12-14] MEDS: DOCUSATE SODIUM 100 MG CAP PO ×2 (09:09→20:37)
[2018-12-14] MEDS: FISH OIL 1,000 MG CAP PO ×2 (09:09→20:37)
[2018-12-14] MEDS: FERROUS SULFATE (EC) 325 MG TAB PO (09:09)
[2018-12-14] MEDS: THIAMINE 100 MG TAB PO (09:09)
[2018-12-14] MEDS: LACTULOSE 30ML CUP PO (09:10)
[2018-12-14] MEDS: GEMFIBROZIL 600 MG TAB PO ×2 (09:10→20:37)
[2018-12-14] MEDS: METOPROLOL 50 MG PO ×2 (09:10→20:40)
[2018-12-14] MEDS: MUPIROCIN 2% 22 GM OINT TOP (09:11)
[2018-12-14] MEDS: metFORMIN 500 MG TAB PO (17:45)
[2018-12-14] MEDS: SENNA TAB PO (20:37)
[2018-12-14] MEDS: NIACIN (SR) 250 MG CAP PO (20:37)
[2018-12-14] MEDS: ASPIRIN (EC) 81 MG TAB PO (20:37)
[2018-12-14] MEDS: ALFUZOSIN (SR) 10 MG TAB PO (20:37)
[2018-12-14] MEDS: ATORVASTATIN 80 MG TAB PO (20:38)
[2018-12-14] MEDS: PSYLLIUM (SUGAR FREE) PACKET PO (20:38)
[2018-12-14] MEDS: LOSARTAN 50 MG TAB PO (20:39)
[2018-12-15] MEDS: ACCU-CHEK XX ×5 (02:00→22:00)
[2018-12-15] MEDS: PANTOPRAZOLE (EC) 40 MG TAB PO (06:46)
[2018-12-15] MEDS: INSULIN ASPART [NOVOLOG] 3 ML PEN SC ×4 (07:55→22:00)
[2018-12-15] MEDS: INSULIN GLARGINE [LANTus] (100 UNITS/ML) SYG SC (07:56)
[2018-12-15] MEDS: LINAGLIPTIN 5 MG TABLET PO (08:03)
[2018-12-15 08:39] LABS: CHOLESTEROL 150 mg/dl (100-200)
[2018-12-15 08:39] LABS: CHOL/HDL RATIO 7.8 RATIO; HDL CHOLESTEROL 19 mg/dl (30-78); LDL CHOLESTEROL,CALCULATED 76 mg/dl; TRIGLYCERIDES 277 mg/dl (0-149)
[2018-12-15] MEDS: GEMFIBROZIL 600 MG TAB PO ×2 (08:43→22:07)
[2018-12-15] MEDS: DOCUSATE SODIUM 100 MG CAP PO ×2 (08:43→22:08)
[2018-12-15] MEDS: FERROUS SULFATE (EC) 325 MG TAB PO (08:43)
[2018-12-15] MEDS: FISH OIL 1,000 MG CAP PO ×2 (08:43→22:07)
[2018-12-15] MEDS: THIAMINE 100 MG TAB PO (08:43)
[2018-12-15] MEDS: METOPROLOL 50 MG PO ×2 (08:45→22:09)
[2018-12-15] MEDS: metFORMIN 500 MG TAB PO (17:32)
[2018-12-15] MEDS: ASPIRIN (EC) 81 MG TAB PO (22:07)
[2018-12-15] MEDS: PSYLLIUM (SUGAR FREE) PACKET PO (22:07)
[2018-12-15] MEDS: ALFUZOSIN (SR) 10 MG TAB PO (22:07)
[2018-12-15] MEDS: NIACIN (SR) 250 MG CAP PO (22:07)
[2018-12-15] MEDS: LOSARTAN 50 MG TAB PO (22:08)
[2018-12-15] MEDS: ATORVASTATIN 80 MG TAB PO (22:08)
[2018-12-15] MEDS: SENNA TAB PO (22:10)
[2018-12-16] MEDS: ACCU-CHEK XX ×3 (02:00→11:30)
[2018-12-16] MEDS: ACETAMINOPHEN 325 MG TAB PO (02:08)
[2018-12-16] MEDS ORDERED: ONDANSETRON 4 MG INJ IV (03:00)
[2018-12-16] MEDS ORDERED: NITROGLYCERIN (SL) 0.4 MG TAB SL (03:00)
[2018-12-16] MEDS: PANTOPRAZOLE (EC) 40 MG TAB PO (06:49)
[2018-12-16] MEDS: INSULIN ASPART [NOVOLOG] 3 ML PEN SC ×2 (07:35→12:04)
[2018-12-16] MEDS: LINAGLIPTIN 5 MG TABLET PO (08:03)
[2018-12-16] MEDS: INSULIN GLARGINE [LANTus] (100 UNITS/ML) SYG SC (08:07)
[2018-12-16] MEDS: DOCUSATE SODIUM 100 MG CAP PO (08:22)
[2018-12-16] MEDS: FERROUS SULFATE (EC) 325 MG TAB PO (08:22)
[2018-12-16] MEDS: FISH OIL 1,000 MG CAP PO (08:22)
[2018-12-16] MEDS: GEMFIBROZIL 600 MG TAB PO (08:23)
[2018-12-16] MEDS: METOPROLOL 50 MG PO (08:24)
[2018-12-16] MEDS: THIAMINE 100 MG TAB PO (08:24)
== END 2018-12-16 12:50 | disposition home health service (06) | DRG 57 ==
LOC: VRC 13:00
DX: I69.351 Hemiplegia and hemiparesis following cerebral infarction affecting right dominant side (principal); E72.51 Non-ketotic hyperglycinemia; N17.9 Acute kidney failure, unspecified; I65.23 Occlusion and stenosis of bilateral carotid arteries; N32.9 Bladder disorder, unspecified; E11.22 Type 2 diabetes mellitus with diabetic chronic kidney disease; I12.9 Hypertensive chronic kidney disease with stage 1 through stage 4 chronic kidney disease, or unspecified chronic kidney disease; Z74.09 Other reduced mobility; N18.2 Chronic kidney disease, stage 2 (mild); F06.31 Mood disorder due to known physiological condition with depressive features; Z87.891 Personal history of nicotine dependence
CPT/HCPCS: 80048; 80053; 80061; 81001; 82728; 82962; 83540; 85025; 86803; 87081; 87086; 87340; 92523; 97110; 97116; 97163; 97166; 97530; 97535; 97542